=== PATIENT | female | born 1975 | race African-American/Black ===

== ENCOUNTER 2021-02-21 19:36 | Emergency (ER) | payer MEDICAID, OTHER ==
[~2021-02-21] VITALS: Ht 170.2 cm; Wt 87.1 kg
[2021-02-21 19:39] VITALS: BP 121/85
[2021-02-21] MEDS ORDERED: KETOROLAC TROMETH 60MG/2ML VIAL IM ONE (22:45)
== END 2021-02-22 00:10 | disposition home or self-care (01) ==
LOC: ER 19:36
DX: S16.1XXA Strain of muscle, fascia and tendon at neck level, initial encounter (principal); S86.911A Strain of unspecified muscle(s) and tendon(s) at lower leg level, right leg, initial encounter; K21.9 Gastro-esophageal reflux disease without esophagitis; M25.511 Pain in right shoulder; Z87.891 Personal history of nicotine dependence; X50.1XXA Overexertion from prolonged static or awkward postures, initial encounter; Y93.89 Activity, other specified; Y92.89 Other specified places as the place of occurrence of the external cause; Y99.8 Other external cause status
CPT/HCPCS: 96372; 99283; J1885

== ENCOUNTER 2024-05-13 18:45 | Inpatient (IN) | payer MEDICAID, OTHER ==
[~2024-05-13] VITALS: Ht 170.2 cm; Wt 87.2 kg
[2024-05-13 19:46] LABS: Basophils # (auto) 0.1 10 ^3/uL (0-0.2); Basophils % (auto) 1.2 % (0.0-2.0); Eosinophils # (auto) 0.1 10 ^3/uL (0-0.8); Eosinophils % (auto) 1.9 % (0.0-7.0); Hematocrit 36.3 % (36.0-46.0); Hemoglobin 12.4 g/dL (12.2-16.2); Lymphocytes # (auto) 3.5 10 ^3/uL (0.4-5.4); Lymphocytes % (auto) 45.8 % (10.0-50.0); Mean Corpuscular Hgb Conc. 34.2 g/dL (32.0-36.0); Mean Corpuscular Volume 93.4 fL (80.0-100.0); Monocytes # (auto) 0.7 10 ^3/uL (0-1.3); Monocytes % (auto) 8.7 % (0.0-12.0); Neutrophils # (auto) 3.2 10 ^3/uL (1.6-8.6); Neutrophils % (auto) 42.4 % (37.0-80.0); Red Blood Cells 3.89 10^6/uL (4.0-5.20); Red Cell Distribution Width 13.7 % (11.8-14.3); White Blood Cell 7.6 10^3/uL (4.4-10.8)
[2024-05-13 20:00] LABS: Alanine Aminotransferase 14 U/L (7-40); Albumin 4.3 g/dL (3.2-4.8); Alkaline Phosphatase 68 U/L (46-116); Anion Gap 5 (5-15); Aspartate Aminotransferase 12 U/L (13-40); BUN/Creatinine Ratio 16.9 (10.0-20.0); Blood Urea Nitrogen 15 mg/dL (9-23); Calcium 9.6 mg/dL (8.7-10.4); Carbon Dioxide 26 mmol/L (20-30); Chloride 109 mmol/L (98-107); Glucose 76 mg/dL (74-106); INR 1.01 (0.9-1.15); Partial Thromboplastin Time 29.3 SEC (24.5-34.5); Prothrombin Time 10.7 sec (9.3-11.8); Sodium 140 mmol/L (136-145)
[2024-05-13 20:01] LABS: Bilirubin, Total 0.3 mg/dL (0.2-1.0); Total Protein 6.5 g/dL (5.7-8.2)
[2024-05-13] MEDS: SODIUM CHLORIDE 0.9% 1,000 ML IV ONE (20:05)
[2024-05-13 20:16] LABS: Urine Bacteria None Seen /hpf (None Seen)
[2024-05-13 20:27] LABS: Urine Blood Negative /uL (Negative); Urine Clarity Clear (Clear); Urine Color Light-Yellow (Yellow); Urine Mucus FEW (None Seen); Urine Protein, UAD Negative (Negative); Urine Specific Gravity 1.021 (1.001-1.035); Urine Urobilinogen Normal (Negative); Urine WBC 2 /hpf (0 - 5); Urine pH 5.5 (5.0-9.0)
[2024-05-13] MEDS ORDERED: ACETAMINOPHEN 325 MG TAB PO PRN (23:15)
[2024-05-13] MEDS ORDERED: ONDANSETRON HCL 4 MG/2 ML VIAL IV PRN (23:15)
[2024-05-14] VITALS (10 sets, daily range): BP systolic 127–145; BP diastolic 77–89; PULSE 57–84; RESP 15–20; TEMP 97.8–98.3; O2SAT 97–100
[2024-05-14] MEDS ORDERED: NITROGLYCERIN 0.4 MG SL TAB SL PRN (00:15)
[2024-05-14] MEDS ORDERED: MORPHINE SULFATE INJ 2 MG/ml SYRG IV PRN (00:15)
[2024-05-14] MEDS: SODIUM CHLOR 0.9% PF (SALINE LOCK) 10ML VIAL/SYR IV SCH (06:22)
[2024-05-14 06:52] LABS: Basophils # (auto) 0.1 10 ^3/uL (0-0.2); Eosinophils # (auto) 0.1 10 ^3/uL (0-0.8); Hematocrit 33.3 % (36.0-46.0); Hemoglobin 11.3 g/dL (12.2-16.2); Lymphocytes # (auto) 1.8 10 ^3/uL (0.4-5.4); Lymphocytes % (auto) 33.4 % (10.0-50.0); Mean Corpuscular Hemoglobin 31.4 pg (28.0-32.0); Mean Corpuscular Hgb Conc. 33.9 g/dL (32.0-36.0); Mean Corpuscular Volume 92.6 fL (80.0-100.0); Monocytes # (auto) 0.4 10 ^3/uL (0-1.3); Monocytes % (auto) 8.3 % (0.0-12.0); Neutrophils # (auto) 2.9 10 ^3/uL (1.6-8.6); Neutrophils % (auto) 55.3 % (37.0-80.0); Nucleated Red Blood Cells % 0.1 %; White Blood Cell 5.3 10^3/uL (4.4-10.8)
[2024-05-14 07:18] LABS: Alanine Aminotransferase 12 U/L (7-40); Albumin 3.6 g/dL (3.2-4.8); Alkaline Phosphatase 59 U/L (46-116); Anion Gap 4 (5-15); Aspartate Aminotransferase 12 U/L (13-40); BUN/Creatinine Ratio 14.9 (10.0-20.0); Bilirubin, Total 0.2 mg/dL (0.2-1.0); Blood Urea Nitrogen 10 mg/dL (9-23); Calcium 8.8 mg/dL (8.7-10.4); Carbon Dioxide 23 mmol/L (20-30); Chloride 113 mmol/L (98-107); Glucose 91 mg/dL (74-106); Potassium 3.9 mmol/L (3.5-5.1); Sodium 140 mmol/L (136-145); Total Protein 5.7 g/dL (5.7-8.2)
[2024-05-14] MEDS: IOHEXOL 300 MG/ML 100ML BOTTLE IJ ONE (12:51)
[2024-05-14] MEDS: POLYETHYLENE GLYCOL 17 GM PWDR PO ONE (21:38)
[2024-05-15 01:00] VITALS: BP 140/89; PULSE 73; RESP 16; TEMP 98.2; O2SAT 97
[2024-05-15] MEDS: HYDROcodone-ACET 5/325MG TAB PO PRN (04:45)
[2024-05-15 05:00] VITALS: BP 91/57; PULSE 66; RESP 17; TEMP 98.3; O2SAT 97
[2024-05-15 08:00] VITALS: PULSE 72; RESP 16; O2SAT 100
[2024-05-15 08:52] VITALS: BP 134/83; PULSE 72; RESP 16; TEMP 98.4; O2SAT 100
[2024-05-15] MEDS: DOCUSATE SOD 100 MG CAP PO PRN (11:55)
[2024-05-15 12:59] VITALS: BP 151/88; PULSE 64; RESP 16; TEMP 97.8; O2SAT 98
[2024-05-15] MEDS ORDERED: DOCU-94 PO (13:48)
[2024-05-15] MEDS ORDERED: DOCUSATE SOD 100 MG CAP PO PRN (14:30)
[2024-05-15] MEDS: POLYETHYLENE GLYCOL 17 GM PWDR PO ONE (14:30)
[2024-05-15] MEDS: PANTOPRAZOLE 40 MG TAB PO ONE (14:30)
[2024-05-15 15:33] LABS: Hematocrit 38.4 % (36.0-46.0); Hemoglobin 13.3 g/dL (12.2-16.2)
[2024-05-15] MEDS: LACTULOSE 20Gm/30ML SOLN PO ONE (16:07)
[2024-05-15 16:14] VITALS: BP 142/68; PULSE 64; RESP 17; TEMP 98.1; O2SAT 99
[2024-05-16] MEDS ORDERED: PANTOPRAZOLE 40 MG TAB PO SCH (06:00)
[2024-05-16] MEDS ORDERED: POLYETHYLENE GLYCOL 17 GM PWDR PO SCH (10:00)
[2024-05-16] MEDS ORDERED: LACTULOSE 20Gm/30ML SOLN PO SCH (10:00)
[2024-05-16 10:04] LABS: Hepatitis B Surface Antigen Negative (Negative)
[2024-05-16 10:25] LABS: Hepatitis C Antibody Negative (Negative)
== END 2024-05-15 16:30 | disposition home or self-care (01) | DRG 254 ==
LOC: ER 18:45 → OVERFLOW 05-14 00:14 → CENTRAL 05-14 03:45
PROVIDERS: ADMIT Nurse Practitioner Family; ATTEND Nurse Practitioner Family
DX: K64.8 Other hemorrhoids (principal); K21.9 Gastro-esophageal reflux disease without esophagitis; K59.00 Constipation, unspecified; K58.9 Irritable bowel syndrome, unspecified; Z87.891 Personal history of nicotine dependence; Z79.899 Other long term (current) drug therapy
CPT/HCPCS: 36415; 74177; 80053; 80320; 81001; 82306; 82607; 83036; 84443; 85014; 85018; 85025; 85610; 85730; 86803; 87340; 96360; G0378

== ENCOUNTER 2025-08-09 09:34 | Day surgery (SDC) | payer SELFPAY ==
[2025-08-02 09:43] LABS: Hematocrit 40.7 % (36.0-46.0); Hemoglobin 13.5 g/dL (12.2-16.2); Mean Corpuscular Hemoglobin 30.8 pg (28.0-32.0); Mean Corpuscular Volume 93.1 fL (80.0-100.0); Nucleated Red Blood Cells % 0.0 %
[2025-08-02 10:12] LABS: INR 0.97 (0.9-1.15); Partial Thromboplastin Time 31.6 SEC (24.5-34.5); Prothrombin Time 10.3 sec (9.3-11.8)
[2025-08-02 10:18] LABS: Alanine Aminotransferase 10 U/L (7-40); Albumin 4.4 g/dL (3.2-4.8); Alkaline Phosphatase 74 U/L (46-116); Anion Gap 7 (5-15); BUN/Creatinine Ratio 13.0 (10.0-20.0); Blood Urea Nitrogen 10 mg/dL (9-23); Calcium 9.4 mg/dL (8.7-10.4); Carbon Dioxide 27 mmol/L (20-31); Glucose 88 mg/dL (74-106); Potassium 4.2 mmol/L (3.5-5.1); Sodium 142 mmol/L (136-145); Total Protein 7.5 g/dL (5.7-8.2)
[2025-08-02 10:20] LABS: Bilirubin, Total 0.2 mg/dL (0.2-1.0); Chloride 108 mmol/L (98-107)
[2025-08-02 11:38] LABS: Urine Protein, UAD TRACE (Negative)
[~2025-08-09] VITALS: Ht 170.2 cm; Wt 81.6 kg
[~2025-08-09 09:34] MED LIST: ACYC400T16 PO; OMEP20TA PO
[2025-08-09] MEDS ORDERED: [UNRECOGNIZED DRUG - REMARK] IV ONE (09:35)
[2025-08-09 12:12] VITALS: TEMP 98.3
[2025-08-09] MEDS ORDERED: ceFAZolin 1GM/50ML 100 ML IV ONE (12:15)
[2025-08-09] MEDS ORDERED: LIDOCAINE 2% JELLY 11ml (GLYDO) ONE (12:56)
[2025-08-09] MEDS ORDERED: GELATIN 1 SPONGE SIZE 50 TOP ONE (12:56)
[2025-08-09] MEDS ORDERED: ROCURONIUM 10MG/ML 10ML VIAL IV ONE (13:08)
[2025-08-09] MEDS ORDERED: GLYCOPYRROLATE 0.2 MG/ML 1ML VIAL ONE (13:08)
[2025-08-09] MEDS ORDERED: LIDOCAINE 2% (LOCAL ANESTH.) PF 5ml SDV ONE (13:08)
[2025-08-09] MEDS ORDERED: PROPOFOL 10 MG/ML 20 ML IV ONE (13:08)
[2025-08-09] MEDS ORDERED: fentaNYL CITRATE 100 MCG/2 ML VL ONE ×2 (13:08→14:38)
[2025-08-09] MEDS ORDERED: KETOROLAC TROMETH 30 MG/ML 1ML VIAL ONE (13:08)
[2025-08-09] MEDS ORDERED: HYDROmorphone HCL 2 MG/ML VL/or syr ONE (14:02)
[2025-08-09] MEDS ORDERED: SUGAMMADEX 200mg/2ml Vial (100MG/ML) IV ONE (14:32)
[2025-08-09 14:44] VITALS: PULSE 85; RESP 10; O2SAT 100
[2025-08-09] MEDS ORDERED: ONDANSETRON HCL 4 MG/2 ML VIAL IV PRN (15:00)
[2025-08-09] MEDS ORDERED: ACETAMINOPHEN IV 1000 MG/100ML (10MG/ML) IV ONE (15:00)
[2025-08-09] MEDS ORDERED: HYDROmorphone HCL 2 MG/ML VL/or syr IV PRN (15:00)
--- NOTE | 2025-08-09 15:01 | DVHOP ---
DATE OF SURGERY: 08/09/2025 PREOPERATIVE DIAGNOSIS: Hemorrhoids. POSTOPERATIVE DIAGNOSIS: Hemorrhoids. SURGEON: Heriberto Dodd MD HOUSEKEEPER MANAGER: Werner Thakur NP ANESTHESIA: General endotracheal. ANESTHESIOLOGIST: Dr. Bolton. PROCEDURE: Hemorrhoidectomy. DESCRIPTION OF PROCEDURE: Under general endotracheal anesthesia, administered by Dr. Bolton with the patient in jackknife position prone on the operating room table, body, arms, and legs carefully protected and padded. The buttocks were and the perianal skin and anus prepped and draped, infiltrated with 0.25% Marcaine and 0.5% Xylocaine with epinephrine mixture and subsequently dilated the anus to 3 fingerbreadths. A Germain was applied to the hemorrhoid group at the 7 o'clock position and then a Roselia clamp was applied to the base. The hemorrhoids were excised over the [place] clamp and the remaining mucosa underneath the [place] clamp was oversewn utilizing 2-0 chromic suture. Similarly, a group of hemorrhoids at the 5 o'clock position and the 1 o'clock position on the anus with the patient in prone position were excised. Similarly, several groups of internal hemorrhoids were controlled with a rubber band ligator. Subsequently, the anus was inspected for hemostasis, which was found to be complete. There was no evidence of ongoing bleeding and the anus was packed with a Gelfoam pad saturated with 2% Xylocaine gel. The patient remained stable throughout the procedure and left the operating room following an accurate needle and sponge count. No family members were present in the waiting room and no one answered at the phone number given. Heriberto Dodd MD PF/EKT TID: [id number] RECEIPT: [id number]
[2025-08-09 15:25] VITALS: BP 149/100; PULSE 87; RESP 14; O2SAT 97
== END 2025-08-09 18:15 | disposition home or self-care (01) ==
LOC: SUR 09:34
PROVIDERS: ATTEND Surgery
DX: K64.4 Residual hemorrhoidal skin tags (principal); K64.8 Other hemorrhoids; I10 Essential (primary) hypertension; F32.A Depression, unspecified; Z79.899 Other long term (current) drug therapy; Z98.890 Other specified postprocedural states
CPT/HCPCS: 36415; 46250; 80053; 81001; 81025; 85025; 85610; 85730; 88304; J0690; J1100; J1171; J1885; J2003; J2250; J2405; J2704; J3010